=== PATIENT | male | born 1995 | race Caucasian/White ===

== ENCOUNTER 2016-07-13 15:29 | Emergency (ER) | payer BC ==
[~2016-07-13] VITALS: Ht 170.2 cm; Wt 55.0 kg
[~2016-07-13 15:29] MED LIST: ZITH500T PO; ZYRT10TA3 PO
[2016-07-13 15:30] VITALS: BP 140/80; PULSE 65; RESP 16; TEMP 97.9; O2SAT 99
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
== END 2016-07-13 17:57 | disposition home or self-care (01) ==
LOC: NEPB 15:29
DX: R51 Headache (principal); V49.9XXA Car occupant (driver) (passenger) injured in unspecified traffic accident, initial encounter; Y92.410 Unspecified street and highway as the place of occurrence of the external cause
CPT/HCPCS: 70450